=== PATIENT | female | born 1970 | race Caucasian/White ===

== ENCOUNTER 2019-04-17 10:37 | Emergency (ER) | payer SELFPAY ==
[~2019-04-17] VITALS: Ht 167.6 cm; Wt 50.0 kg
[2019-04-17 10:38] VITALS: Ht 167.6 cm; Wt 50.0 kg
[2019-04-17 10:59] LABS: HCG URINE NEGATIVE (NEGATIVE)
[2019-04-17 11:01] LABS: APPEARANCE CLEAR (CLEAR); COLOR YELLOW (YELLOW); NITRITE NEGATIVE (NEGATIVE); SPECIFIC GRAVITY 1.015 (1.005-1.020)
[2019-04-17 11:02] LABS: BILIRUBIN NEGATIVE (NEGATIVE); GLUCOSE NEGATIVE (NEGATIVE); KETONE MODERATE mg/dL (NEGATIVE); PROTEIN 2+ mg/dL (NEGATIVE); UROBILINOGEN NORMAL (NORMAL)
[2019-04-17 11:03] LABS: BACTERIA MODERATE /hpf (NEGATIVE); EPITHELIAL CELLS 0-5 /hpf (0-5); GRANULAR CAST 0-5 /lpf (NONE SEEN); MUCUS >1+ /lpf (NONE SEEN); RED CELL CAST RARE /lpf (NONE SEEN)
[2019-04-17 11:04] LABS: AMORPHOUS SEDIMENT >1+ /lpf (NONE SEEN)
[2019-04-17 11:07] LABS: UDS - AMPHET NEGATIVE QUAL (NEGATIVE); UDS - BARB NEGATIVE QUAL (NEGATIVE); UDS - BENZO POSITIVE QUAL (NEGATIVE); UDS - COCAINE NEGATIVE QUAL (NEGATIVE); UDS - OPIATE NEGATIVE QUAL (NEGATIVE); UDS - PCP NEGATIVE QUAL (NEGATIVE); UDS - THC POSITIVE QUAL (NEGATIVE)
[2019-04-17 11:13] LABS: BASOPHILS 0.2 % (0-2); EOSINOPHILS 0.1 % (0-7); HEMATOCRIT 39.4 % (36.0-48.0); HEMOGLOBIN 14.5 g/dL (12-16); IMMATURE GRANULOCYTES 0.1 % (0-5); MCHC 36.8 g/dL (31.0-37.0); MEAN PLATELET VOLUME 8.9 fL (7.4-10.4); MONOCYTES 6.4 % (2-11); NEUTROPHILS 86.2 % (40-80); PLATELET COUNT 256 10x3/uL (130-400); RBC 4.53 10x6/uL (4.00-5.40); RDW 12.1 % (11.5-14.5); WBC 9.2 10x3/uL (4.8-10.8)
[2019-04-17 11:25] LABS: ALBUMIN 3.7 g/dL (3.4-5.0); ALKALINE PHOSPHATASE 97 U/L (46-116); ALT (SGPT) 15 U/L (10-68); BILIRUBIN - TOTAL 1.18 mg/dL (0.2-1.3); CARBON DIOXIDE 24.9 mmol/L (21.0-32.0); CREATININE - SERUM 0.6 mg/dL (0.6-1.3); GLUCOSE 103 mg/dL (74-106); POTASSIUM - SERUM 3.9 mmol/L (3.5-5.1); PROTEIN - SERUM 8.3 g/dL (6.4-8.2); UREA NITROGEN 10 mg/dL (7-18); eGFR NON AFRICAN AMERICAN > 90 mL/min (90-120)
[2019-04-17 11:37] LABS: CALC OSMOLALITY 240 mosm/kg (275-300); CHLORIDE - SERUM 85 mmol/L (98-107); SODIUM 120 mmol/L (136-145)
[2019-04-17 11:39] LABS: MAGNESIUM - SERUM 1.8 mg/dL (1.8-2.4); THYROID STIMULATING HORMONE 3.62 uIU/mL (0.36-3.74)
[2019-04-17 12:12] LABS: CKMB 2.1 U/L (0.0-3.6); CREATINE KINASE 87 UL (21-215)
[2019-04-17 12:14] LABS: TROPONIN-I < 0.017 ng/mL (0.000-0.060)
[2019-04-17 13:50] VITALS: BP 142/85
== END 2019-04-17 14:05 | disposition short-term general hospital (02) ==
LOC: D.ER 10:37
PROVIDERS: Family Medicine
DX: G40.909 Epilepsy, unspecified, not intractable, without status epilepticus (principal); F17.200 Nicotine dependence, unspecified, uncomplicated

== ENCOUNTER → 2019-12-26 14:01 | Outpatient (CLI) | payer SELFPAY ==
[2019-04-17 10:38] VITALS: BMI 17.8
[2019-12-26 14:45] LABS: BILIRUBIN NEGATIVE (NEGATIVE); GLUCOSE NEGATIVE (NEGATIVE); KETONE NEGATIVE (NEGATIVE); NITRITE POSITIVE (NEGATIVE); SPECIFIC GRAVITY 1.015 (1.005-1.020)
[2019-12-26 14:46] LABS: AMORPHOUS SEDIMENT <1+ /lpf (NONE SEEN); BACTERIA MANY /hpf (NEGATIVE); EPITHELIAL CELLS 0-5 /hpf (0-5); GRANULAR CAST RARE /lpf (NONE SEEN); WHITE CELLS - URINE 25-50 /hpf (NEGATIVE)
== END | disposition home or self-care (01) ==
LOC: D.LABREF 14:01
PROVIDERS: ATTEND Family Medicine
DX: R39.81 Functional urinary incontinence (principal)